=== PATIENT | male | born 1950 | race Hispanic/Latino ===

== ENCOUNTER → 2018-02-04 | Outpatient (CLI) | payer MEDICARE | END | disposition home or self-care (01) | LOC: SHCH 13:08 | PROVIDERS: ATTEND Internal Medicine Cardiovascular Disease | DX: I73.9 Peripheral vascular disease, unspecified (principal) | CPT/HCPCS: 93925 ==

== ENCOUNTER 2022-06-03 06:00 | Day surgery (SDC) | payer MEDICARE, OTHER ==
[2022-05-30 16:11] LABS: BASOPHILS % (AUTO) 0.8 % (0.0-5.0); EOSINOPHILS % (AUTO) 3.1 % (0.0-8.0); HEMATOCRIT 43.6 % (42-54); LYMPHOCYTES % (AUTO) 32.4 % (21.0-51.0); MEAN CORPUSCULAR HEMOGLOBIN 26.4 pg (27.0-33.0); MEAN CORPUSCULAR HGB CONC 31.4 g/dL (32.0-36.0); MONOCYTES % (AUTO) 8.5 % (3.0-13.0); NEUTROPHILS % (AUTO) 54.9 % (40.0-77.0); PLATELET COUNT (AUTO) 203 K/uL (130-400); RED BLOOD CELL COUNT(AUTO) 5.19 MIL/uL (4.50-6.20); RED CELL DISTRIBUTION WIDTH 13.2 % (11.0-15.5); WHITE BLOOD COUNT (AUTO) 6.5 K/uL (4.8-10.8)
[2022-05-30 16:21] LABS: CREATININE 1.1 mg/dL (0.5-1.5); POTASSIUM 4.3 mmol/L (3.5-5.1)
[2022-05-30 16:24] LABS: INR 0.94 (0.85-1.15); PROTHROMBIN TIME 10.3 SEC (9.6-11.6)
[2022-05-30 16:26] LABS: PARTIAL THROMBOPLASTIN TIME 25.6 SEC (26.3-35.5)
[2022-05-31 14:02] VITALS: BP 129/61
[~2022-06-03] VITALS: Ht 180.3 cm; Wt 97.3 kg
[~2022-06-03 06:00] MED LIST: ATOR10 PO; LORA10TA7 PO; MELA10TA2 PO; MVIT PO; OMEP40CA21 PO
[2022-06-03 06:58] VITALS: BP 149/71
[2022-06-03] MEDS: 0.9%NACL 1000ML 1,000 ML IV SCH ×2 (06:58→08:19)
[2022-06-03] MEDS ORDERED: MEPERIDINE-PF 25 MG/ML SYG ONE (07:21)
[2022-06-03] MEDS ORDERED: MIDAZOLAM HCL 1 MG/ML 2ML VIAL ONE (07:22)
[2022-06-03] MEDS ORDERED: LIDOCAINE HCL 1% MDV 50ML VIAL ONE (07:22)
[2022-06-03] MEDS ORDERED: CEFAZOLIN SODIUM 1 GM VIAL ONE (07:26)
[2022-06-03] MEDS ORDERED: BUPIVACAINE/PF 0.25% 10ML VIAL IJ ONE (07:28)
[2022-06-03] MEDS ORDERED: OCTYL 2-CYANOACRYLATE 1 EACH TP ONE (07:41)
[2022-06-03] MEDS ORDERED: 0.9%NACL 10ML VIAL IVP SCH (08:00)
[2022-06-03 08:10] VITALS: BP 107/56
[2022-06-03 08:25] VITALS: BP 106/69
[2022-06-03 08:40] VITALS: BP 112/62
[2022-06-03 08:55] VITALS: BP 118/65
== END 2022-06-03 09:10 | disposition home or self-care (01) ==
LOC: DAH 06:00
PROVIDERS: ATTEND Internal Medicine Cardiovascular Disease
DX: Z45.09 Encounter for adjustment and management of other cardiac device (principal); R55 Syncope and collapse; E78.2 Mixed hyperlipidemia; G47.33 Obstructive sleep apnea (adult) (pediatric); Z79.01 Long term (current) use of anticoagulants; Z79.899 Other long term (current) drug therapy; Z86.16 Personal history of COVID-19; Z82.49 Family history of ischemic heart disease and other diseases of the circulatory system; Z72.89 Other problems related to lifestyle
CPT/HCPCS: 80048; 85025; 85610; 85730; 36415; 93005; 33286; A4649; J0690; J7030; J2250; J3490 ×2; J2175; A4215; A4222; A4221; A4663; A4216; A4606; A4223 ×3; 96360; 96361; 99156; 99157